=== PATIENT | male | born 1960 | race Two or more races ===

== ENCOUNTER 2018-09-01 10:40 | Observation (INO) | payer OTHER ==
[~2018-09-01] VITALS: Ht 170.2 cm; Wt 77.5 kg
--- NOTE | 2018-09-01 11:20 | NUR ---
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
--- NOTE | 2018-09-01 11:35 | NUR ---
Patient ambulates to restroom to provide urine sample with steady gait, patient appears to be in moderate distress reportedly due to suprapubic abdominal pain. Continuous blood pressure and SPO2 monitoring in place. Call velásquez within reach. Waiting to be evaluated by provider.
[2018-09-01 12:05] LABS: MICROSCOPIC INDICATED
[2018-09-01 12:15] LABS: CULTURE INDICATED? NO
[2018-09-01] MEDS ORDERED: SODIUM CHLORIDE FLUSH 10ML SYR IVF ONE (12:30)
[2018-09-01] MEDS ORDERED: METOCLOPRAMIDE 5 MG/ML, 2ML IVPush ONE (12:30)
--- NOTE | 2018-09-01 12:33 | NUR ---
Plan of care updated, IV started, blood sent to lab. Patient transported for xray.
[2018-09-01] MEDS ORDERED: METOCLOPRAMIDE 5 MG/ML, 2ML ONE (12:36)
[2018-09-01 12:40] LABS: MEAN CORPUSCULAR HEMOGLOBIN 34.7 pg (27.5-34.5); MEAN CORPUSCULAR HGB CONC 34.7 g/dL (33.2-36.2); MEAN CORPUSCULAR VOLUME 99.9 fL (81-97); MEAN PLATELET VOLUME 8.2 fL (7.4-10.4); PLATELET COUNT 189 x10^3/uL (130-400); RED CELL DISTRIBUTION WIDTH 12.8 % (9.4-14.8)
[2018-09-01 12:53] LABS: ALBUMIN 4.2 g/dL (3.4-5.0); ANION GAP 4 mmol/L (5-15); CHLORIDE 107 mmol/L (98-107)
[2018-09-01 12:57] LABS: ALANINE AMINOTRANSFERASE 41 U/L (12-78); ALKALINE PHOSPHATASE 51 U/L (45-117); BILIRUBIN,TOTAL 1.1 mg/dL (0.2-1.0); CREATININE 0.87 mg/dL (0.7-1.3); TOTAL PROTEIN 7.4 g/dL (6.4-8.2)
[2018-09-01] MEDS ORDERED: HYDROcodone/APAP 5/325 TABLET PO ONE (13:00)
[2018-09-01] MEDS ORDERED: HYDROcodone/APAP 5/325 TABLET ONE (13:00)
--- NOTE | 2018-09-01 13:05 | NUR ---
Plan updated, questions answered. Call velásquez within reach.
[2018-09-01 13:19] LABS: BASOPHILS # (AUTO) 0.02 x10^3/uL (0-0.1); BASOPHILS % (AUTO) 0 % (0-1); EOSINOPHILS # (AUTO) 0.03 x10^3/uL (0-0.4); EOSINOPHILS % (AUTO) 0 % (1-7); LYMPHOCYTES # (AUTO) 0.71 x10^3/uL (1-3.4); LYMPHOCYTES % (AUTO) 5 % (22-44); MD SCAN; MONOCYTES % (AUTO) 2 % (2-9); NEUTROPHILS % (AUTO) 93 % (42-75)
[2018-09-01 14:38] LABS: TROPONIN I < 0.015 ng/mL (0.000-0.045)
[2018-09-01] MEDS ORDERED: POTASSIUM CHLORIDE 20 MEQ in D5%-0.45% NACL 1,000 ML IV ONE (14:56)
[2018-09-01] MEDS ORDERED: HYDROmorphone 1 MG/ML, 1ML IVPush PRN (15:00)
[2018-09-01] MEDS ORDERED: ONDANSETRON 2MG/ML, 2ML IVPush PRN (15:00)
[2018-09-01] MEDS ORDERED: CEFOTETAN PMX 1GM/50ML 50 ML IV ONE (15:00)
[2018-09-01] MEDS ORDERED: HYDROmorphone 1 MG/ML, 1ML IV ONE (15:00)
--- NOTE | 2018-09-01 15:11 | NUR ---
Patient reports pain is improved to 5/10 but requests additional pain medication for comfort. Plan of care updated, call velásquez within reach.
[2018-09-01] MEDS ORDERED: METF500T17 PO (15:13)
[2018-09-01] MEDS ORDERED: EZET10TA18 PO (15:13)
[2018-09-01] MEDS ORDERED: ENAL10TA PO (15:13)
[2018-09-01] MEDS ORDERED: CEFOTETAN PMX 1GM/50ML 50 ML ONE (15:32)
[2018-09-01] MEDS ORDERED: HYDROmorphone 1 MG/ML, 1ML ONE (15:32)
--- NOTE | 2018-09-01 15:40 | NUR ---
IV fluid not available in department, requested from pharmacy
[2018-09-01 16:30] VITALS: BP 147/77
[2018-09-01] MEDS ORDERED: BUPIVACAINE/PF-EPI 0.5% 1:200K ONE (19:14)
[2018-09-01] MEDS ORDERED: BUPIVACAINE/PF-EPI 0.5% 1:200K INFIL ONE (19:32)
[2018-09-01] MEDS ORDERED: MIDAZOLAM 1 MG/ML, 2ML ONE (19:45)
[2018-09-01] MEDS ORDERED: FENTANYL PF 250 MCG/5ML ONE (19:46)
[2018-09-01] MEDS ORDERED: SUCCINYLCHOLINE 20 MG/ML, 10ML ONE (19:51)
[2018-09-01] MEDS ORDERED: GLYCOPYRROLATE 0.2MG/1ML, 5ML ONE (19:51)
[2018-09-01] MEDS ORDERED: NEOSTIGMINE 1 MG/ML, 10ML ONE (19:51)
[2018-09-01] MEDS ORDERED: PROPOFOL 10 MG/ML, 20ML ONE (19:51)
[2018-09-01] MEDS ORDERED: ROCURONIUM 10 MG/ML,10ML ONE (19:51)
[2018-09-01] MEDS ORDERED: CEFOTETAN 2 GM ONE (19:51)
[2018-09-01] MEDS ORDERED: FENTANYL PF 100 MCG/2ML IV PRN (20:00)
[2018-09-01] MEDS ORDERED: PROMETHAZINE 12.5 MG SUPP PR PRN (20:00)
[2018-09-01] MEDS ORDERED: HYDROmorphone 2 MG/ML, 1ML IVPush PRN (20:00)
[2018-09-01] MEDS ORDERED: OXYcodone 5 MG/5 ML ORAL.SOL UDC PO PRN (20:00)
[2018-09-01] MEDS ORDERED: hydrALAzine 20 MG/ML, 1ML IV PRN ×2 (20:00→22:00)
[2018-09-01] MEDS ORDERED: MEPERIDINE/PF 25MG/0.5ML IVPush PRN (20:00)
[2018-09-01] MEDS ORDERED: PROMETHAZINE 25 MG/ML, 1ML IV PRN (20:00)
[2018-09-01] MEDS ORDERED: ONDANSETRON 2MG/ML, 2ML IV PRN (20:00)
[2018-09-01] MEDS ORDERED: ACETAMINOPHEN 325 MG TABLET PO PRN ×2 (20:00→22:00)
[2018-09-01] MEDS ORDERED: MORPHINE SULFATE 4 MG/ML, 1ML IVPush PRN (20:00)
[2018-09-01] MEDS ORDERED: ONDANSETRON ODT 8 MG PO PRN (20:00)
[2018-09-01] MEDS ORDERED: PROMETHAZINE 25 MG SUPP PR PRN (20:00)
[2018-09-01] MEDS ORDERED: LABETALOL 5MG/ML, 20ML IV PRN (20:00)
[2018-09-01] MEDS ORDERED: PROMETHAZINE 25 MG/ML, 1ML IM PRN ×2 (20:00)
[2018-09-01] MEDS ORDERED: OXYcodone 5 MG/5 ML ORAL.SOL UDC ONE (20:57)
[2018-09-01 21:53] VITALS: BP 131/81
[2018-09-01] MEDS ORDERED: morphine SULFATE 10 MG/ML, 1ML IV PRN (22:00)
[2018-09-01] MEDS ORDERED: ACETAMINOPHEN 650 MG SUPP PR PRN (22:00)
[2018-09-01] MEDS ORDERED: LORazepam 1MG TABLET PO PRN (22:00)
[2018-09-01] MEDS ORDERED: DIPHENHYDRAMINE 50 MG/ML, 1ML IV PRN (22:00)
[2018-09-01] MEDS ORDERED: ENOXAPARIN 40 MG/0.4 ML SQ SCH (22:00)
[2018-09-01] MEDS ORDERED: LORazepam 2 MG/ML, 1ML IV PRN (22:00)
[2018-09-01] MEDS ORDERED: KETOROLAC 30 MG/1 ML IV PRN (22:00)
[2018-09-01] MEDS ORDERED: HYDROcodone/APAP 5/325 TABLET PO PRN (22:00)
[2018-09-01] MEDS ORDERED: DIPHENHYDRAMINE 25 MG CAPSULE PO PRN (22:00)
[2018-09-01] MEDS: POTASSIUM CHLORIDE 20 MEQ in D5%-0.45% NACL 1,000 ML IV SCH (22:58)
[2018-09-02 03:15] VITALS: BP 140/97
[2018-09-02 04:02] VITALS: BP 122/79
[2018-09-02 05:58] LABS: BASOPHILS # (AUTO) 0.03 x10^3/uL (0-0.1); BASOPHILS % (AUTO) 0 % (0-1); EOSINOPHILS # (AUTO) 0.18 x10^3/uL (0-0.4); EOSINOPHILS % (AUTO) 2 % (1-7); LYMPHOCYTES # (AUTO) 1.68 x10^3/uL (1-3.4); LYMPHOCYTES % (AUTO) 18 % (22-44); MD NO; MEAN CORPUSCULAR HEMOGLOBIN 34.2 pg (27.5-34.5); MEAN CORPUSCULAR HGB CONC 33.9 g/dL (33.2-36.2); MEAN PLATELET VOLUME 8.3 fL (7.4-10.4); MONOCYTES % (AUTO) 5 % (2-9); NEUTROPHILS # (AUTO) 7.04 x10^3/uL (1.8-6.8); NEUTROPHILS % (AUTO) 75 % (42-75); PLATELET COUNT 185 x10^3/uL (130-400); RED BLOOD COUNT 4.75 x10^6/uL (4.38-5.82)
[2018-09-02] MEDS: POTASSIUM CHLORIDE 20 MEQ in D5%-0.45% NACL 1,000 ML IV SCH (06:00)
[2018-09-02 06:07] LABS: MICROSCOPIC NOT IND
[2018-09-02 06:08] LABS: CULTURE INDICATED? NO
[2018-09-02 06:16] LABS: ALBUMIN 3.2 g/dL (3.4-5.0); ANION GAP 3 mmol/L (5-15); CALCIUM 8.3 mg/dL (8.5-10.1); CHLORIDE 106 mmol/L (98-107); CREATININE 1.04 mg/dL (0.7-1.3)
[2018-09-02 07:16] VITALS: BP 119/73
[2018-09-02] MEDS ORDERED: HYDR-3240 PO (13:25)
== END 2018-09-02 13:35 | disposition home or self-care (01) ==
LOC: ED 14:55 → INTOOBSV 14:56 → ED 14:56 → 4NOR 14:56 → ED 15:21 → 4NOR 16:19 → DCLOUNGE 09-02 13:24
PROVIDERS: ADMIT Surgery; ATTEND Surgery
DX: R10.31 Right lower quadrant pain (principal); E11.9 Type 2 diabetes mellitus without complications; F17.200 Nicotine dependence, unspecified, uncomplicated; I10 Essential (primary) hypertension; K37 Unspecified appendicitis; D72.829 Elevated white blood cell count, unspecified
CPT/HCPCS: 36415; 74018; 74021; 74177; 80048; 80053; 81001; 81003; 82040; 83690; 84484; 85025; 88304; 93005; 96365; 96372; 96375; 99284; G0378; J0330; J1170; J1650; J2250; J2704; J2710; J2765; J3010; J3480; J3490